=== PATIENT | male | born 1955 | race Two or more races ===

== ENCOUNTER 2017-08-09 20:20 | Emergency (ER) | payer OTHER ==
[2017-08-09 20:28] VITALS: RESP 16
--- NOTE | 2017-08-09 20:42 | EDPHY ---
H & P Stated Complaint: M1 Homicidal & Suicidal - Personal History Current Tetanus/Diphtheria Vaccine: Unsure Current Tetanus Diphtheria and Acellular Pertussis (TDAP): Unsure - Medical/Surgical History Hx Asthma: No Hx Chronic Respiratory Disease: No Hx Diabetes: No Hx Cardiac Disease: No Hx Renal Disease: No Hx Cirrhosis: No Hx Alcoholism: No Hx HIV/AIDS: No Hx Splenectomy or Spleen Trauma: No Other PMH: schizoaffective disorder - Social History Smoking Status: Never smoked Time Seen by Provider: 08/09/17 20:42 Constitutional: Initial Vital Signs Temperature (C) 36.6 C 08/09/17 20:26 Heart Rate 92 08/09/17 20:26 Respiratory Rate 16 08/09/17 20:26 Blood Pressure 127/85 H 08/09/17 20:26 O2 Sat (%) 95 08/09/17 20:26 O2 Delivery Mode Room Air Allergies/Adverse Reactions: No Known Allergies Allergy (Unverified 08/09/17 20:29) Medical Decision Making ED Course/Re-evaluation: CHIEF COMPLAINT: M1 hold HISTORY OF PRESENT ILLNESS: 62-year-old gentleman brought in by [facility]. Apparently he is threatening suicidality and homicidality. He wants to go to [employer]. He is somewhat intoxicated. The left via public safety police putting common M1 hold REVIEW OF SYSTEMS: A 10 point review of systems was performed and is negative with the exception of the elements mentioned in the history of present illness. PHYSICAL EXAM: HR, BP, O2 Sat, RR. Temp noted General Appearance: Alert, well hydrated, appropriate, and non-toxic appearing. Head: Atraumatic without scalp tenderness or obvious injury Eyes: Pupils equal, round, reactive to light and accommodation, EOMI, no trauma , no injection. Ears: Clear bilaterally, no perforation, normal landmarks Nose: Atraumatic, no rhinorrhea, clear. Throat: There is no erythema or exudates, no lesions, normal tonsils, mucus membranes moist. Neck: Supple, 2+ carotid upstroke, nontender, no lymphadenopathy. Respiratory: No retractions, no distress, no wheezes, and no accessory muscle use. Lungs are clear to auscultation bilaterally. Cardiovascular: Regular rate and rhythm, no murmurs, rubs, or gallops. Bilateral carotid, radial, dorsalis pedis, and posterior tibial pulses intact. Good capillary refill all extremities. Gastrointestinal: Abdomen is soft, nontender, non-distended, no masses, no rebound, no guarding, no peritoneal signs. Musculoskeletal: Normal active ROM of all extremities, atraumatic. Neurological: Alert, appropriate, and interactive. The patient has normal DTRs and non-focal cranial nerves, motor, sensory, and cerebellar exam. Skin: No rashes, good turgor, no nodules on palpation. Past medical history: Psychiatric problems alcoholism Past surgical history: Noncontributory Family history: Noncontributory Social history: Single, lives on the streets, abuses drugs alcohol and everything els DIFFERENTIAL DIAGNOSIS: Includes but is not limited to: Substance abuse, electrolyte abnormality, homicidality, suicidality, schizophrenia, and other psychiatric disorder MEDICAL DECISION MAKING: This patient is cooperative. He told the police that he is homicidal wants to kill everyone around him. He told me that he is homicidal against himself and only wants to kill himself. He denies wanting to kill anyone else. He seems somewhat intoxicated. Screening laboratory studies are pending. When the patient sober he will get medically cleared and then evaluated by the psychiatric team. Apparently nose [facility] well and I am sure spent time there. (Roberto Nina) [id number]: Signed over to Binh. At 7am shift-change. (Imtiaz Cruz) I took over care of this patient at 7:00 a.m.. This patient is here for alcohol intoxication and suicidal ideation. He is being evaluated currently. 9:45 a.m., patient has been seen and evaluated by Behavioral Health. He will be transferred to [facility] for further psychiatric evaluation and treatment. I have filled out the appropriate transfer paperwork. His remaining emergency department course under my care has been unremarkable. He was transferred in stable condition. (Teressa Ndiaye) Other Provider: I assumed care of this patient at 9:[address] Roberto Nina. We are currently awaiting medical clearance and evaluation by mental health. On my examination at 10:30 p.m., the patient is arousable, intoxicated, and resting comfortably. Of note on his laboratory evaluation he has salicylate level of 1.9. I questioned the patient about taking aspirin. He reports he took some last night around 2 in the morning. There is no acidosis on his laboratory evaluation. Repeat salicylate level was ordered for midnight. Patient's care was assumed by Dr. Imtiaz Cruz at 11:30 p.m.. Patient will await sobriety and mental health evaluation as well as further evaluation regarding his salicylate level. (Adriana Savage) - Data Points Laboratory Results: Laboratory Results 08/09/17 21:05 08/09/17 21:05 08/10/17 00:25 Salicylates < 1.0 mg/dL L mg/dL (2.0-20.0) Departure - Departure Disposition: Other Psych, Not [facility] Clinical Impression: Homicidal ideation, Suicidal ideation, Schizoaffective disorder Additional Instructions: Your blood pressure has been high in the emergency department this morning. It is important you see your primary care physician for evaluation of your blood pressure when you are discharged from [facility]. Referrals: NONE *PRIMARY CARE P,. [Primary Care Provider] - As per Instructions
[2017-08-09 21:28] LABS: PLATELET COUNT 216 10^3/uL (150-400)
[2017-08-10 10:20] VITALS: BP 180/110; PULSE 88; TEMP 98.6; O2SAT 97
== END 2017-08-10 11:23 ==
DX: R45.851 Suicidal ideations (principal); R45.850 Homicidal ideations; F25.9 Schizoaffective disorder, unspecified
CPT/HCPCS: 80305; G0480